=== PATIENT | female | born 1990 | race Caucasian/White ===

== ENCOUNTER 2021-02-09 09:53 | Emergency (ER) | payer BC ==
[~2021-02-09] VITALS: Ht 172.7 cm; Wt 88.5 kg
[2021-02-09 10:14] VITALS: BP 122/70
[2021-02-09] MEDS ORDERED: FLUORESCEIN OPHTHALMIC 1 MG STRIP EACHEYE ONE (10:30)
[2021-02-09] MEDS ORDERED: PROPARACAINE OPHTH 0.5%, 15ML EACHEYE ONE (10:30)
[2021-02-09] MEDS ORDERED: PROPARACAINE OPHTH 0.5%, 15ML ONE (13:30)
[2021-02-09] MEDS ORDERED: FLUORESCEIN OPHTHALMIC 1 MG STRIP ONE ×2 (13:30→15:24)
--- NOTE | 2021-02-09 13:34 | NUR ---
PT AMBULATED TO ROOM WITH STEADY GAIT. MEDS PULLED FOR PROVIDER ADMIN
--- NOTE | 2021-02-09 15:32 | NUR ---
BREAK RN, VA'S DONE. UNABLE TO SEE "ANYTHING" WITH RIGHT EYE. PT ABLE TO WALK INDEPENDTLY.
--- NOTE | 2021-02-09 15:38 | NUR ---
OPTHOMOLOGIST TO SEE PT.
--- NOTE | 2021-02-09 16:52 | NUR ---
OPTHOMOLOGIST AT BEDSIDE.
[2021-02-09] MEDS ORDERED: OXYcodone/APAP 10/325MG TABLET PO ONE (17:30)
[2021-02-09] MEDS ORDERED: OXYcodone/APAP 10/325MG TABLET ONE (17:35)
== END 2021-02-09 17:55 | disposition home or self-care (01) ==
LOC: ED 15:16
DX: H20.00 Unspecified acute and subacute iridocyclitis (principal)
CPT/HCPCS: 36415; 81374; 99283